=== PATIENT | female | born 1935 | race Caucasian/White ===

== ENCOUNTER 2020-09-07 13:34 | Inpatient (IN) | payer MEDICARE, OTHER ==
[~2020-09-07] VITALS: Ht 162.6 cm; Wt 79.8 kg
[2020-09-07] MEDS ORDERED: SODIUM CHLORIDE 0.9% 100 ML ONE ×3 (13:55→21:00)
[2020-09-07] MEDS ORDERED: IOVERSOL 350 MG/ML 150 ML VIAL ONE (13:55)
[2020-09-07] MEDS ORDERED: IOVERSOL 350 MG/ML 100 ML VIAL ONE (14:11)
[2020-09-07 14:24] LABS: BASOPHILS % (AUTO) 0.2 % (0.0-2.0); EOSINOPHILS % (AUTO) 0.1 % (1.0-6.0); HEMATOCRIT 48.5 % (36-46); HEMOGLOBIN 15.9 g/dL (12.0-16.0); LYMPHOCYTES # (AUTO) 0.9 K/uL (1.0-4.8); MEAN CORPUSCULAR HEMOGLOBIN 28.2 pg (26.0-34.0); MEAN CORPUSCULAR HGB CONC 32.8 G/dL (31.0-37.0); MEAN CORPUSCULAR VOLUME 86 fL (80-100); MONOCYTES # (AUTO) 0.5 K/uL (0.1-1.0); MONOCYTES % (AUTO) 3.8 % (2.0-9.0); NEUTROPHILS # (AUTO) 12.9 K/uL (1.8-7.7); PLATELET COUNT (AUTO) 275 K/uL (150-450); RED BLOOD CELL COUNT(AUTO) 5.65 MIL/uL (4.00-5.20); RED CELL DISTRIBUTION WIDTH 16.4 % (11.5-14.5)
[2020-09-07 14:25] LABS: NEUTROPHILS % (AUTO) 89.9 % (40.0-70.0)
[2020-09-07 14:29] LABS: CALCIUM, TOTAL 9.9 mg/dL (8.8-10.5); CREATININE 1.96 mg/dL (0.60-1.30); POTASSIUM 4.1 mmol/L (3.5-5.1)
[2020-09-07 14:34] LABS: INR 1.3 (0.9-1.1); PROTHROMBIN TIME 13.5 SEC (9.4-11.6)
[2020-09-07 14:54] LABS: ALBUMIN 3.2 g/dL (3.4-5.0); BILIRUBIN,TOTAL 1.6 mg/dL (0.1-1.0); TOTAL PROTEIN, SERUM 7.1 g/dL (6.4-8.2)
[2020-09-07 14:59] LABS: LACTIC ACID 4.1 mmol/L (0.4-2.0)
[2020-09-07] MEDS ORDERED: SODIUM CHLORIDE 0.9% 500 ML IV ONE (15:15)
[2020-09-07 15:31] LABS: AMPHET/METH SCREEN,URINE NEGATIVE (NEGATIVE); BARBITURATE SCREEN, URINE NEGATIVE (NEGATIVE); BENZODIAZEPINES SCREEN,URINE NEGATIVE (NEGATIVE); CANNABINOID SCREEN,URINE NEGATIVE (NEGATIVE); COCAINE SCREEN,URINE NEGATIVE (NEGATIVE); METHADONE SCREEN, URINE NEGATIVE (NEGATIVE); OPIATE SCREEN,URINE NEGATIVE (NEGATIVE)
[2020-09-07 15:35] LABS: PHENCYCLIDINE SCREEN,URINE NEGATIVE (NEGATIVE)
[2020-09-07] MEDS ORDERED: CefTRIAXone 1 GM/DEXTROSE 50 ML IV ONE (16:30)
[2020-09-07 16:40] LABS: COVID AG,FIA SOURCE NASOPHARYNGEAL
[2020-09-07] MEDS ORDERED: 0.9% SODIUM CHLORIDE 10 ML SYRINGE IVP PRN (17:30)
[2020-09-07] MEDS ORDERED: ACETAMINOPHEN 325 MG TABLET PO PRN ×2 (17:30→18:45)
[2020-09-07] MEDS ORDERED: MORPHINE SULFATE 2 MG/ML SYRINGE IVP PRN (18:45)
[2020-09-07] MEDS ORDERED: HEPARIN SODIUM,PORCINE 5,000 UNITS/ML VIAL IVP ONE (18:45)
[2020-09-07] MEDS ORDERED: IPRATROPIUM BROMIDE 0.5 MG/2.5 ML NEB SOLUTION NEB PRN (18:45)
[2020-09-07] MEDS ORDERED: ONDANSETRON HCL 4 MG/2 ML VIAL IVP PRN (18:45)
[2020-09-07] MEDS ORDERED: HEPARIN SODIUM,PORCINE 5,000 UNITS/ML VIAL IVP PRN ×3 (18:45→19:44)
[2020-09-07] MEDS ORDERED: BISACODYL 10 MG RECTAL RECTAL SUPPOSITORY PR PRN (18:45)
[2020-09-07] MEDS ORDERED: SODIUM CHLORIDE 0.45% 1,000 ML IV ONE (18:45)
[2020-09-07] MEDS ORDERED: HYDROCODONE/ACETAMINOPHEN 5-325 MG TABLET PO PRN (18:45)
[2020-09-07] MEDS ORDERED: ZOLPIDEM TARTRATE 5 MG TABLET PO PRN (18:45)
[2020-09-07] MEDS ORDERED: ALBUTEROL SULFATE 2.5 MG/0.5 ML NEB SOLUTION NEB PRN (18:45)
[2020-09-07] MEDS ORDERED: MAGNESIUM HYDROXIDE SUSPENSION 30 ML UDCUP PO PRN (18:45)
[2020-09-07 18:50] VITALS: BP 143/80
[2020-09-07 20:09] LABS: BASOPHILS % (AUTO) 0.2 % (0.0-2.0); EOSINOPHILS % (AUTO) 0.1 % (1.0-6.0); HEMATOCRIT 48.1 % (36-46); HEMOGLOBIN 15.4 g/dL (12.0-16.0); LYMPHOCYTES # (AUTO) 1.3 K/uL (1.0-4.8); LYMPHOCYTES % (AUTO) 8.9 % (22.0-44.0); MEAN CORPUSCULAR HEMOGLOBIN 27.9 pg (26.0-34.0); MEAN CORPUSCULAR HGB CONC 32.1 G/dL (31.0-37.0); MEAN CORPUSCULAR VOLUME 87 fL (80-100); MONOCYTES % (AUTO) 6.8 % (2.0-9.0); NEUTROPHILS # (AUTO) 11.9 K/uL (1.8-7.7); PLATELET COUNT (AUTO) 216 K/uL (150-450); RED BLOOD CELL COUNT(AUTO) 5.54 MIL/uL (4.00-5.20)
[2020-09-07 20:31] LABS: INR 1.3 (0.9-1.1); PROTHROMBIN TIME 13.3 SEC (9.4-11.6)
[2020-09-07 20:42] VITALS: BP 123/59
[2020-09-07] MEDS: DOCUSATE SODIUM 100 MG CAPSULE PO SCH (21:00)
[2020-09-07] MEDS: CefTRIAXone 1 GM/DEXTROSE 50 ML IV SCH (21:25)
[2020-09-07] MEDS: HEPARIN SODIUM 25000 UNITS/D5W 250 ML IV PRN (23:12)
[2020-09-08 00:20] VITALS: BP 129/62
[2020-09-08 04:15] VITALS: BP 121/60
[2020-09-08 07:46] LABS: APPEARANCE,URINE CLOUDY (CLEAR); GLUCOSE, URINE (UA) 100 mg/dL (NEGATIVE); KETONES,URINE TRACE mg/dL (NEGATIVE); LEUKOCYTE ESTERASE ,URINE NEGATIVE (NEGATIVE); NITRATE,URINE NEGATIVE (NEGATIVE); OCCULT BLOOD,URINE SMALL (NEGATIVE); PROTEIN,URINE POS 1+ (NEGATIVE)
[2020-09-08 07:47] LABS: BILIRUBIN,URINE PRELIM. POSITIVE (NEGATIVE)
[2020-09-08 08:17] LABS: BACTERIA,URINE None Seen /HPF (None Seen); SQUAMOUS EPITHELIAL CELL,UR Few /LPF (None Seen)
[2020-09-08] MEDS: DOCUSATE SODIUM 100 MG CAPSULE PO SCH ×2 (09:00→21:00)
[2020-09-08 11:42] VITALS: BP 152/77
[2020-09-08 11:48] LABS: EOSINOPHILS % (AUTO) 0.4 % (1.0-6.0); HEMATOCRIT 44.9 % (36-46); HEMOGLOBIN 14.7 g/dL (12.0-16.0); LYMPHOCYTES # (AUTO) 2.1 K/uL (1.0-4.8); LYMPHOCYTES % (AUTO) 17.4 % (22.0-44.0); MEAN CORPUSCULAR HEMOGLOBIN 28.1 pg (26.0-34.0); MEAN CORPUSCULAR HGB CONC 32.8 G/dL (31.0-37.0); MEAN CORPUSCULAR VOLUME 86 fL (80-100); MONOCYTES # (AUTO) 0.9 K/uL (0.1-1.0); MONOCYTES % (AUTO) 7.7 % (2.0-9.0); NEUTROPHILS # (AUTO) 8.8 K/uL (1.8-7.7); NEUTROPHILS % (AUTO) 73.5 % (40.0-70.0); PLATELET COUNT (AUTO) 228 K/uL (150-450); RED BLOOD CELL COUNT(AUTO) 5.25 MIL/uL (4.00-5.20); RED CELL DISTRIBUTION WIDTH 17.1 % (11.5-14.5)
[2020-09-08 11:56] LABS: CALCIUM, TOTAL 9.4 mg/dL (8.8-10.5); CREATININE 2.38 mg/dL (0.60-1.30)
[2020-09-08] MEDS: DEXTROSE 5%-WATER 1,000 ML IV SCH (14:00)
[2020-09-08 16:22] VITALS: BP 148/109
[2020-09-08] MEDS: CefTRIAXone 1 GM/DEXTROSE 50 ML IV SCH (17:59)
[2020-09-08 19:34] VITALS: BP 117/63
[2020-09-08 19:41] LABS: CALCIUM, TOTAL 9.8 mg/dL (8.8-10.5); CREATININE 2.45 mg/dL (0.60-1.30); POTASSIUM 4.1 mmol/L (3.5-5.1)
[2020-09-08] MEDS: HEPARIN SODIUM 25000 UNITS/D5W 250 ML IV PRN (21:42)
[2020-09-08 23:31] VITALS: BP 122/75
[2020-09-09] MEDS: DEXTROSE 5%-WATER 1,000 ML IV SCH ×2 (04:15→16:29)
[2020-09-09 04:19] VITALS: BP 156/67
[2020-09-09] MEDS: DOCUSATE SODIUM 100 MG CAPSULE PO SCH ×2 (09:00→21:00)
[2020-09-09 09:41] LABS: CALCIUM, TOTAL 8.6 mg/dL (8.8-10.5); CREATININE 1.66 mg/dL (0.60-1.30); POTASSIUM 3.3 mmol/L (3.5-5.1)
[2020-09-09 11:30] VITALS: BP 149/88
[2020-09-09 16:15] VITALS: BP 126/94
[2020-09-09 20:46] VITALS: BP 109/71
[2020-09-09] MEDS: CefTRIAXone 1 GM/DEXTROSE 50 ML IV SCH (21:00)
[2020-09-09 22:17] LABS: CALCIUM, TOTAL 8.5 mg/dL (8.8-10.5); CREATININE 1.38 mg/dL (0.60-1.30); POTASSIUM 3.4 mmol/L (3.5-5.1)
[2020-09-09 23:46] VITALS: BP 100/62
[2020-09-10 04:22] VITALS: BP 110/66
[2020-09-10] MEDS: DEXTROSE 5%-WATER 1,000 ML IV SCH ×2 (06:31→19:24)
[2020-09-10] MEDS: DOCUSATE SODIUM 100 MG CAPSULE PO SCH ×2 (08:05→21:00)
[2020-09-10 08:10] VITALS: BP 139/92
[2020-09-10 10:31] LABS: CALCIUM, TOTAL 8.5 mg/dL (8.8-10.5); CREATININE 1.06 mg/dL (0.60-1.30)
[2020-09-10 11:25] VITALS: BP 121/69
[2020-09-10] MEDS: PANTOPRAZOLE SODIUM 40 MG/VIAL IVP SCH (12:41)
[2020-09-10] MEDS: POTASSIUM CHL 10 MEQ/WATER 50 ML IV SCH ×4 (12:41→16:51)
[2020-09-10 15:45] VITALS: BP 106/61
[2020-09-10] MEDS: HEPARIN SODIUM 25000 UNITS/D5W 250 ML IV PRN (18:13)
[2020-09-10 19:15] LABS: CALCIUM, TOTAL 8.5 mg/dL (8.8-10.5); CREATININE 0.9 mg/dL (0.60-1.30); POTASSIUM 4.3 mmol/L (3.5-5.1)
[2020-09-10] MEDS: CefTRIAXone 1 GM/DEXTROSE 50 ML IV SCH (19:23)
[2020-09-10 20:01] VITALS: BP 104/57
[2020-09-10] MEDS: ASPIRIN 300 MG RECTAL SUPPOSITORY PR SCH (21:36)
[2020-09-10 23:33] VITALS: BP 108/60
[2020-09-11 05:06] VITALS: BP 121/50
[2020-09-11 07:34] VITALS: BP 130/67
[2020-09-11] MEDS: ASPIRIN 300 MG RECTAL SUPPOSITORY PR SCH (08:43)
[2020-09-11] MEDS: PANTOPRAZOLE SODIUM 40 MG/VIAL IVP SCH (08:52)
[2020-09-11] MEDS: DEXTROSE 5%-WATER 1,000 ML IV SCH ×2 (08:52→21:30)
[2020-09-11] MEDS: DOCUSATE SODIUM 100 MG CAPSULE PO SCH ×2 (08:53→21:17)
[2020-09-11 10:25] LABS: BASOPHILS % (AUTO) 0.6 % (0.0-2.0); EOSINOPHILS % (AUTO) 3.7 % (1.0-6.0); HEMATOCRIT 32.4 % (36-46); LYMPHOCYTES # (AUTO) 1.3 K/uL (1.0-4.8); LYMPHOCYTES % (AUTO) 15.5 % (22.0-44.0); MEAN CORPUSCULAR HEMOGLOBIN 28.9 pg (26.0-34.0); MEAN CORPUSCULAR HGB CONC 33.9 G/dL (31.0-37.0); MEAN CORPUSCULAR VOLUME 85 fL (80-100); MONOCYTES % (AUTO) 7.2 % (2.0-9.0); NEUTROPHILS # (AUTO) 5.9 K/uL (1.8-7.7); PLATELET COUNT (AUTO) 193 K/uL (150-450); RED BLOOD CELL COUNT(AUTO) 3.81 MIL/uL (4.00-5.20); RED CELL DISTRIBUTION WIDTH 16.3 % (11.5-14.5)
[2020-09-11 10:26] LABS: MONOCYTES # (AUTO) 0.6 K/uL (0.1-1.0)
[2020-09-11 10:39] LABS: CHOL/HDL RATIO 5.3 (3.9-5.7)
[2020-09-11 11:50] VITALS: BP 141/79
[2020-09-11 15:48] VITALS: BP 132/73
[2020-09-11] MEDS: CefTRIAXone 1 GM/DEXTROSE 50 ML IV SCH (18:10)
[2020-09-11 20:15] VITALS: BP 121/58
[2020-09-12] VITALS (7 sets, daily range): BP systolic 106–129; BP diastolic 60–79
[2020-09-12] MEDS: DOCUSATE SODIUM 100 MG CAPSULE PO SCH ×2 (09:00→21:00)
[2020-09-12] MEDS: ASPIRIN 300 MG RECTAL SUPPOSITORY PR SCH (09:00)
[2020-09-12] MEDS: PANTOPRAZOLE SODIUM 40 MG/VIAL IVP SCH (09:16)
[2020-09-12] MEDS: DEXTROSE 5%-WATER 1,000 ML IV SCH (09:17)
[2020-09-12 11:21] LABS: BASOPHILS % (AUTO) 0.5 % (0.0-2.0); EOSINOPHILS % (AUTO) 4.8 % (1.0-6.0); HEMATOCRIT 36.6 % (36-46); HEMOGLOBIN 12.1 g/dL (12.0-16.0); LYMPHOCYTES % (AUTO) 14.4 % (22.0-44.0); MEAN CORPUSCULAR HEMOGLOBIN 28.2 pg (26.0-34.0); MEAN CORPUSCULAR VOLUME 85 fL (80-100); MONOCYTES # (AUTO) 0.5 K/uL (0.1-1.0); MONOCYTES % (AUTO) 6.6 % (2.0-9.0); NEUTROPHILS # (AUTO) 5.3 K/uL (1.8-7.7); NEUTROPHILS % (AUTO) 73.7 % (40.0-70.0); PLATELET COUNT (AUTO) 264 K/uL (150-450); RED BLOOD CELL COUNT(AUTO) 4.29 MIL/uL (4.00-5.20); RED CELL DISTRIBUTION WIDTH 16.6 % (11.5-14.5)
[2020-09-12 11:35] LABS: INR 1.5 (0.9-1.1); PROTHROMBIN TIME 15.1 SEC (9.4-11.6)
[2020-09-12 11:36] LABS: ALANINE AMINOTRANSFERASE 24 U/L (12-78); ALBUMIN 2.3 g/dL (3.4-5.0); ALKALINE PHOSPHATASE 82 U/L (46-116); ANION GAP 8 mmol/L (8-16); ASPARTATE AMINOTRANSFERASE 26 U/L (15-37); BILIRUBIN,TOTAL 0.9 mg/dL (0.1-1.0); CALCIUM, TOTAL 8.8 mg/dL (8.8-10.5); CARBON DIOXIDE 23 mmol/L (22-29); CHLORIDE 104 mmol/L (98-107); CREATININE 0.79 mg/dL (0.60-1.30); GLUCOSE,RANDOM 100 mg/dL (70-110); POTASSIUM 3.4 mmol/L (3.5-5.1); SODIUM SERUM 135 mmol/L (136-145); TOTAL PROTEIN, SERUM 6.2 g/dL (6.4-8.2); UREA NITROGEN, BLOOD 8 mg/dL (7-18)
[2020-09-12 11:44] LABS: GLOMERULAR FILTR. RATE CALC > 60 mL/min (>60)
[2020-09-12] MEDS ORDERED: SODIUM CHLORIDE 0.9% 1,000 ML ONE (13:10)
[2020-09-12] MEDS ORDERED: MIDAZOLAM HCL 2 MG/2 ML VIAL ONE (13:11)
[2020-09-12] MEDS ORDERED: FentaNYL CITRATE-PF 100 MCG/2 ML VIAL ONE (13:12)
[2020-09-12] MEDS ORDERED: CeFAZolin 1 GM/DEXTROSE 50 ML IV ONE (14:00)
[2020-09-12] MEDS: CefTRIAXone 1 GM/DEXTROSE 50 ML IV SCH (17:46)
[2020-09-12] MEDS: HEPARIN SODIUM 25000 UNITS/D5W 250 ML IV PRN (23:12)
[2020-09-13] VITALS: BP 116/74
[2020-09-13] MEDS: DEXTROSE 5%-WATER 1,000 ML IV SCH (00:10)
[2020-09-13 03:44] VITALS: BP 109/63
[2020-09-13 05:02] LABS: COVID AG,FIA SOURCE NASOPHARYNGEAL
[2020-09-13 07:21] VITALS: BP 151/98
[2020-09-13] MEDS: DOCUSATE SODIUM 100 MG CAPSULE PO SCH (07:49)
[2020-09-13] MEDS: ASPIRIN 300 MG RECTAL SUPPOSITORY PR SCH (08:39)
[2020-09-13] MEDS ORDERED: MULTIVITAMINS, THERAPEUTIC 15 ML UDCUP PEG SCH (09:00)
[2020-09-13] MEDS ORDERED: HYDROGEN PEROXIDE 473 ML SOLUTION TP SCH (09:00)
[2020-09-13] MEDS ORDERED: POVIDONE-IODINE 10% 120 ML SOLUTION TP SCH (09:00)
[2020-09-13] MEDS ORDERED: MULTIVITAMINS WITH MINERALS, THERAPEUTIC 15 ML UDCUP PEG SCH (09:00)
[2020-09-13 09:29] LABS: BASOPHILS % (AUTO) 0.9 % (0.0-2.0); EOSINOPHILS % (AUTO) 2.8 % (1.0-6.0); HEMATOCRIT 33.8 % (36-46); HEMOGLOBIN 11.6 g/dL (12.0-16.0); LYMPHOCYTES # (AUTO) 1.2 K/uL (1.0-4.8); LYMPHOCYTES % (AUTO) 13.4 % (22.0-44.0); MEAN CORPUSCULAR HEMOGLOBIN 28.9 pg (26.0-34.0); MEAN CORPUSCULAR HGB CONC 34.5 G/dL (31.0-37.0); MEAN CORPUSCULAR VOLUME 84 fL (80-100); MONOCYTES # (AUTO) 0.8 K/uL (0.1-1.0); MONOCYTES % (AUTO) 8.7 % (2.0-9.0); NEUTROPHILS # (AUTO) 6.5 K/uL (1.8-7.7); NEUTROPHILS % (AUTO) 74.2 % (40.0-70.0); PLATELET COUNT (AUTO) 296 K/uL (150-450); RED BLOOD CELL COUNT(AUTO) 4.02 MIL/uL (4.00-5.20); RED CELL DISTRIBUTION WIDTH 16.6 % (11.5-14.5)
[2020-09-13 09:46] LABS: ALANINE AMINOTRANSFERASE 21 U/L (12-78); ALBUMIN 2.1 g/dL (3.4-5.0); ALKALINE PHOSPHATASE 82 U/L (46-116); ANION GAP 9 mmol/L (8-16); ASPARTATE AMINOTRANSFERASE 20 U/L (15-37); BILIRUBIN,TOTAL 0.6 mg/dL (0.1-1.0); CALCIUM, TOTAL 8.1 mg/dL (8.8-10.5); CARBON DIOXIDE 25 mmol/L (22-29); CHLORIDE 106 mmol/L (98-107); CREATININE 0.79 mg/dL (0.60-1.30); GLUCOSE,RANDOM 124 mg/dL (70-110); POTASSIUM 3.4 mmol/L (3.5-5.1); SODIUM SERUM 140 mmol/L (136-145); TOTAL PROTEIN, SERUM 5.4 g/dL (6.4-8.2); UREA NITROGEN, BLOOD 7 mg/dL (7-18)
[2020-09-13 09:51] LABS: GLOMERULAR FILTR. RATE CALC > 60 mL/min (>60)
[2020-09-13] MEDS: PANTOPRAZOLE SODIUM 40 MG/VIAL IVP SCH (10:06)
[2020-09-13 11:31] VITALS: BP 113/83
[2020-09-13] MEDS ORDERED: MULT9LIQ6 PEG (13:06)
[2020-09-13] MEDS ORDERED: ACET-2865 PO (13:07)
[2020-09-13] MEDS ORDERED: AUD NEB (13:08)
[2020-09-13] MEDS ORDERED: [UNRECOGNIZED DRUG - CODE] PO (13:10)
[2020-09-13] MEDS ORDERED: IPRNEB IH (13:11)
[2020-09-13] MEDS ORDERED: ASPI-728 PEG (13:12)
[2020-09-13] MEDS ORDERED: CEFU250T87 PO (13:16)
[2020-09-13] MEDS ORDERED: APIX5TAB PO (13:16)
[2020-09-13] MEDS ORDERED: PANT-31 PO (13:17)
[2020-09-13 15:42] VITALS: BP 113/83
[2020-09-13] MEDS ORDERED: APIXABAN 5 MG TABLET PO SCH (21:00)
== END 2020-09-13 17:10 | DRG 64 ==
LOC: EMS 13:36 → 5S 17:50
PROVIDERS: ADMIT Hospitalist; ATTEND Hospitalist
PROC: 0DH63UZ Insertion of Feeding Device into Stomach, Percutaneous Approach (ICD-10-PCS; principal; 2020-09-12 15:00)
DX: I63.9 Cerebral infarction, unspecified (principal); I26.99 Other pulmonary embolism without acute cor pulmonale; E43 Unspecified severe protein-calorie malnutrition; E87.0 Hyperosmolality and hypernatremia; N17.9 Acute kidney failure, unspecified; E87.2 Acidosis; E86.0 Dehydration; D72.829 Elevated white blood cell count, unspecified; Z66 Do not resuscitate; Z68.30 Body mass index [BMI] 30.0-30.9, adult; F02.80 Dementia in other diseases classified elsewhere, unspecified severity, without behavioral disturbance, psychotic disturbance, mood disturbance, and anxiety; G30.9 Alzheimer's disease, unspecified; E87.6 Hypokalemia; R13.10 Dysphagia, unspecified; Z20.828 Contact with and (suspected) exposure to other viral communicable diseases
CPT/HCPCS: 70496; 82271; 83605; 85730; 86850; 86900; 86901; 87426; 92526; 92610; 93005; 97162; 97167; 97535; 99291; C9113; J0690; J0696; J1644; J2250; J3010; J3480; J7030; J7040; J7050; J7060; 36415-L1; 36415-TC; 70450; 70450-TC; 71045-TC; 80061-TC

== ENCOUNTER 2020-10-19 16:53 | Inpatient (IN) | payer MEDICARE, OTHER ==
[~2020-10-19] VITALS: Ht 170.2 cm; Wt 81.8 kg
[~2020-10-19 16:53] MED LIST: ACET-2865 PO; APIX5TAB PO; ASPI-728 PEG; AUD NEB; BISA-151 PO; CEFU250T87 GT; DOCU-275 PO; IPRNEB IH; MULT9LIQ6 PEG; PANT-31 GT
[2020-10-19] MEDS ORDERED: DOCU-275 PO (17:11)
[2020-10-19] MEDS ORDERED: LANS30CA56 PO (17:11)
[2020-10-19] MEDS ORDERED: ACETAMINOPHEN 1000 MG/ISO-OSM 100 ML IV ONE (17:45)
[2020-10-19] MEDS ORDERED: SODIUM CHLORIDE 0.9% 1,000 ML IV ONE (17:45)
[2020-10-19] MEDS ORDERED: AZITHROMYCIN 500 MG/NS 250 ML IV ONE (17:45)
[2020-10-19] MEDS ORDERED: CefTRIAXone 1 GM/DEXTROSE 50 ML IV ONE (17:45)
[2020-10-19 17:51] LABS: GLUCOSE,POINT OF CARE 115 MG/DL (70-110)
[2020-10-19 17:58] LABS: COVID AG,FIA SOURCE NASOPHARYNGEAL
[2020-10-19 18:50] LABS: BASOPHILS % (AUTO) 0.1 % (0.0-2.0); EOSINOPHILS % (AUTO) 0 % (1.0-6.0); HEMATOCRIT 29.9 % (36-46); LYMPHOCYTES # (AUTO) 0.7 K/uL (1.0-4.8); LYMPHOCYTES % (AUTO) 8.7 % (22.0-44.0); MEAN CORPUSCULAR HEMOGLOBIN 29.2 pg (26.0-34.0); MEAN CORPUSCULAR HGB CONC 33.3 G/dL (31.0-37.0); MEAN CORPUSCULAR VOLUME 88 fL (80-100); MONOCYTES # (AUTO) 0.6 K/uL (0.1-1.0); MONOCYTES % (AUTO) 7.6 % (2.0-9.0); NEUTROPHILS # (AUTO) 6.7 K/uL (1.8-7.7); NEUTROPHILS % (AUTO) 83.6 % (40.0-70.0); PLATELET COUNT (AUTO) 273 K/uL (150-450); RED BLOOD CELL COUNT(AUTO) 3.42 MIL/uL (4.00-5.20); RED CELL DISTRIBUTION WIDTH 16.1 % (11.5-14.5)
[2020-10-19 19:00] LABS: INFLUENZA TYPE A NEGATIVE FOR TYPE A (NEGATIVE); INFLUENZA TYPE B NEGATIVE FOR TYPE B (NEGATIVE)
[2020-10-19 19:05] LABS: APPEARANCE,URINE CLOUDY (CLEAR); BILIRUBIN,URINE NEGATIVE (NEGATIVE); GLUCOSE, URINE (UA) NEGATIVE (NEGATIVE); KETONES,URINE NEGATIVE (NEGATIVE); LEUKOCYTE ESTERASE ,URINE LARGE (NEGATIVE); NITRATE,URINE POSITIVE (NEGATIVE); OCCULT BLOOD,URINE LARGE (NEGATIVE); PH,URINE 6.5 (5.0-8.0); PROTEIN,URINE POS 1+ (NEGATIVE); UROBILINOGEN,URINE 0.2 mg/dL (<=1.0)
[2020-10-19 19:12] LABS: BACTERIA,URINE Many /HPF (None Seen); RBC,URINE 0-2 /HPF (0-2); WBC,URINE >100 /HPF (0-5)
[2020-10-19 19:13] LABS: CREATININE 1.44 mg/dL (0.60-1.30); POTASSIUM 3.3 mmol/L (3.5-5.1)
[2020-10-19 19:13] LABS: SQUAMOUS EPITHELIAL CELL,UR Moderate /LPF (None Seen)
[2020-10-19] MEDS ORDERED: ACETAMINOPHEN 325 MG TABLET PO PRN (19:30)
[2020-10-19] MEDS ORDERED: 0.9% SODIUM CHLORIDE 10 ML SYRINGE IVP PRN (19:30)
[2020-10-19] MEDS ORDERED: ONDANSETRON HCL 4 MG/2 ML VIAL IVP PRN ×2 (19:30→20:00)
[2020-10-19 19:36] LABS: BILIRUBIN,TOTAL 0.3 mg/dL (0.1-1.0); MAGNESIUM 1.9 mg/dL (1.80-2.40); TOTAL PROTEIN, SERUM 6.2 g/dL (6.4-8.2)
[2020-10-19] MEDS ORDERED: BISACODYL 10 MG RECTAL RECTAL SUPPOSITORY PR PRN (20:00)
[2020-10-19] MEDS ORDERED: MORPHINE SULFATE 2 MG/ML SYRINGE IVP PRN (20:00)
[2020-10-19] MEDS ORDERED: MAGNESIUM HYDROXIDE SUSPENSION 30 ML UDCUP PO PRN (20:00)
[2020-10-19] MEDS ORDERED: *CLINICAL-LEVOFLOXACIN IVPB DOSING CLINICAL ONE (20:00)
[2020-10-19] MEDS ORDERED: SODIUM CHLORIDE 0.45% 1,000 ML IV ONE (20:00)
[2020-10-19] MEDS: ASPIRIN 81 MG CHEWABLE TABLET PEG SCH (23:28)
[2020-10-19] MEDS: LEVOFLOXACIN 750 MG/D5% WATER 150 ML IV SCH (23:28)
[2020-10-19] MEDS: DOCUSATE SODIUM 100 MG CAPSULE PO SCH (23:28)
[2020-10-19] MEDS: APIXABAN 2.5 MG TABLET PO SCH (23:28)
[2020-10-19] MEDS: ACETAMINOPHEN 325 MG TABLET PO PRN (23:29)
[2020-10-19 23:48] VITALS: BP 105/61
[2020-10-20] MEDS ORDERED: HEPARIN SODIUM,PORCINE 5,000 UNITS/ML VIAL SQ SCH
[2020-10-20 04:42] VITALS: BP 123/16
[2020-10-20 06:26] LABS: BASOPHILS % (AUTO) 0.3 % (0.0-2.0); EOSINOPHILS % (AUTO) 0.1 % (1.0-6.0); HEMATOCRIT 29.6 % (36-46); HEMOGLOBIN 9.9 g/dL (12.0-16.0); LYMPHOCYTES # (AUTO) 1.1 K/uL (1.0-4.8); LYMPHOCYTES % (AUTO) 14.1 % (22.0-44.0); MEAN CORPUSCULAR HEMOGLOBIN 29.2 pg (26.0-34.0); MEAN CORPUSCULAR HGB CONC 33.4 G/dL (31.0-37.0); MEAN CORPUSCULAR VOLUME 87 fL (80-100); MONOCYTES # (AUTO) 0.6 K/uL (0.1-1.0); MONOCYTES % (AUTO) 7.6 % (2.0-9.0); NEUTROPHILS % (AUTO) 77.9 % (40.0-70.0); PLATELET COUNT (AUTO) 244 K/uL (150-450); RED BLOOD CELL COUNT(AUTO) 3.39 MIL/uL (4.00-5.20); RED CELL DISTRIBUTION WIDTH 16.5 % (11.5-14.5)
[2020-10-20 06:36] LABS: CALCIUM, TOTAL 7.3 mg/dL (8.8-10.5); CREATININE 1.22 mg/dL (0.60-1.30); POTASSIUM 3.3 mmol/L (3.5-5.1)
[2020-10-20 07:31] VITALS: BP 98/63
[2020-10-20] MEDS: DOCUSATE SODIUM 100 MG CAPSULE PO SCH (09:00)
[2020-10-20] MEDS ORDERED: PANTOPRAZOLE SODIUM 40 MG DR TABLET PO SCH (09:00)
[2020-10-20] MEDS: ASPIRIN 81 MG CHEWABLE TABLET PEG SCH ×2 (09:23→20:28)
[2020-10-20] MEDS: APIXABAN 2.5 MG TABLET PO SCH ×2 (09:23→20:28)
[2020-10-20] MEDS ORDERED: DOCUSATE SODIUM 100 MG/10 ML LIQUID UDCUP GT PRN (10:15)
[2020-10-20] MEDS ORDERED: IPRATROPIUM BROMIDE HFA 17 MCG/PUFF 12.9 GM INHALER IH PRN (11:15)
[2020-10-20] MEDS ORDERED: ALBUTEROL SULFATE HFA 90 MCG/PUFF 8 GM INHALER IH PRN (11:15)
[2020-10-20] MEDS ORDERED: DEXTROSE 5%-WATER 1,000 ML IV ONE (11:15)
[2020-10-20 15:12] VITALS: BP 122/61
[2020-10-20] MEDS: HYDROCODONE/ACETAMINOPHEN 5-325 MG TABLET PO PRN (20:28)
[2020-10-20] MEDS: ZOLPIDEM TARTRATE 5 MG TABLET PO PRN (20:28)
[2020-10-20 20:35] VITALS: BP 117/68
[2020-10-21 00:30] VITALS: BP 124/71
[2020-10-21 05:00] VITALS: BP 104/62
[2020-10-21] MEDS: PANTOPRAZOLE SODIUM 40 MG/VIAL IVP SCH (07:59)
[2020-10-21] MEDS: APIXABAN 2.5 MG TABLET PO SCH ×2 (07:59→20:26)
[2020-10-21] MEDS: ASPIRIN 81 MG CHEWABLE TABLET PEG SCH ×2 (08:00→20:26)
[2020-10-21 08:26] VITALS: BP 124/97
[2020-10-21 08:57] LABS: GLUCOMETER DEV NAME(LOC) 6S.1; GLUCOSE,POINT OF CARE 97 MG/DL (70-110)
[2020-10-21 11:27] LABS: EOSINOPHILS % (AUTO) 0 % (1.0-6.0); HEMATOCRIT 30.1 % (36-46); HEMOGLOBIN 9.6 g/dL (12.0-16.0); LYMPHOCYTES # (AUTO) 0.8 K/uL (1.0-4.8); LYMPHOCYTES % (AUTO) 9.4 % (22.0-44.0); MEAN CORPUSCULAR VOLUME 88 fL (80-100); MONOCYTES # (AUTO) 0.4 K/uL (0.1-1.0); MONOCYTES % (AUTO) 4.5 % (2.0-9.0); NEUTROPHILS # (AUTO) 7.2 K/uL (1.8-7.7); PLATELET COUNT (AUTO) 237 K/uL (150-450); RED BLOOD CELL COUNT(AUTO) 3.44 MIL/uL (4.00-5.20); RED CELL DISTRIBUTION WIDTH 16.8 % (11.5-14.5)
[2020-10-21 11:31] LABS: NEUTROPHILS % (AUTO) 86.1 % (40.0-70.0)
[2020-10-21 12:17] LABS: CALCIUM, TOTAL 7.9 mg/dL (8.8-10.5); CREATININE 1.17 mg/dL (0.60-1.30); POTASSIUM 3.3 mmol/L (3.5-5.1)
[2020-10-21] MEDS: HYDROCODONE/ACETAMINOPHEN 5-325 MG TABLET PO PRN (12:21)
[2020-10-21 12:28] LABS: PHOSPHORUS 2.5 mg/dL (2.5-4.9)
[2020-10-21 16:35] VITALS: BP 134/73
[2020-10-21 19:46] VITALS: BP 110/59
[2020-10-21] MEDS: LEVOFLOXACIN 750 MG/D5% WATER 150 ML IV SCH (20:28)
[2020-10-22] MEDS: ZOLPIDEM TARTRATE 5 MG TABLET PO PRN (00:27)
[2020-10-22 00:50] VITALS: BP 130/87
[2020-10-22 04:37] VITALS: BP 128/71
[2020-10-22 07:43] LABS: EOSINOPHILS % (AUTO) 0 % (1.0-6.0); HEMATOCRIT 28.8 % (36-46); HEMOGLOBIN 9.5 g/dL (12.0-16.0); LYMPHOCYTES # (AUTO) 0.8 K/uL (1.0-4.8); LYMPHOCYTES % (AUTO) 12.5 % (22.0-44.0); MEAN CORPUSCULAR HEMOGLOBIN 28.5 pg (26.0-34.0); MEAN CORPUSCULAR VOLUME 86 fL (80-100); MONOCYTES # (AUTO) 0.3 K/uL (0.1-1.0); MONOCYTES % (AUTO) 4.8 % (2.0-9.0); NEUTROPHILS # (AUTO) 5.4 K/uL (1.8-7.7); NEUTROPHILS % (AUTO) 82.7 % (40.0-70.0); PLATELET COUNT (AUTO) 223 K/uL (150-450); RED BLOOD CELL COUNT(AUTO) 3.33 MIL/uL (4.00-5.20); RED CELL DISTRIBUTION WIDTH 16.4 % (11.5-14.5)
[2020-10-22 07:59] LABS: CALCIUM, TOTAL 8.2 mg/dL (8.8-10.5); CREATININE 0.91 mg/dL (0.60-1.30)
[2020-10-22 08:01] LABS: POTASSIUM 2.8 mmol/L (3.5-5.1)
[2020-10-22 08:25] VITALS: BP 121/83
[2020-10-22] MEDS ORDERED: POTASSIUM CHLORIDE 20 MEQ ER TABLET PO PRN (09:45)
[2020-10-22] MEDS: PANTOPRAZOLE SODIUM 40 MG/VIAL IVP SCH (10:10)
[2020-10-22] MEDS: POTASSIUM CHL 10 MEQ/WATER 50 ML IV PRN ×4 (10:11→17:26)
[2020-10-22] MEDS: ASPIRIN 81 MG CHEWABLE TABLET PEG SCH ×2 (10:11→19:49)
[2020-10-22] MEDS: APIXABAN 2.5 MG TABLET PO SCH ×2 (10:11→19:49)
[2020-10-22 16:37] VITALS: BP 147/89
[2020-10-22] MEDS: ACETAMINOPHEN 325 MG TABLET PO PRN (19:49)
[2020-10-22] MEDS ORDERED: SODIUM CHLORIDE 0.9% 500 ML IV ONE (19:51)
[2020-10-22 20:19] VITALS: BP 133/78
[2020-10-23] VITALS: BP 161/70
[2020-10-23 05:41] VITALS: BP 136/66
[2020-10-23] MEDS: PANTOPRAZOLE SODIUM 40 MG/VIAL IVP SCH (08:05)
[2020-10-23] MEDS: APIXABAN 2.5 MG TABLET PO SCH ×2 (08:06→20:38)
[2020-10-23] MEDS: ASPIRIN 81 MG CHEWABLE TABLET PEG SCH ×2 (08:06→20:39)
[2020-10-23] MEDS: DEXAMETHASONE SOD PHOS 4 MG/ML VIAL IVP SCH (08:06)
[2020-10-23 08:54] VITALS: BP 169/79
[2020-10-23 15:55] VITALS: BP 140/71
[2020-10-23] MEDS: MORPHINE SULFATE 2 MG/ML SYRINGE IVP PRN ×2 (17:23→20:39)
[2020-10-23 20:08] VITALS: BP 99/75
[2020-10-23] MEDS: LEVOFLOXACIN 750 MG/D5% WATER 150 ML IV SCH (22:15)
[2020-10-23] MEDS: HYDROCODONE/ACETAMINOPHEN 5-325 MG TABLET PO PRN (23:24)
[2020-10-24] MEDS: MORPHINE SULFATE 2 MG/ML SYRINGE IVP PRN (03:02)
[2020-10-24 05:26] VITALS: BP 111/71
[2020-10-24] MEDS ORDERED: MORPHINE SULFATE 2 MG/ML SYRINGE IVP PRN (06:00)
[2020-10-24] MEDS: ASPIRIN 81 MG CHEWABLE TABLET PEG SCH ×2 (08:05→20:43)
[2020-10-24] MEDS: APIXABAN 2.5 MG TABLET PO SCH ×2 (08:05→20:43)
[2020-10-24] MEDS: DEXAMETHASONE SOD PHOS 4 MG/ML VIAL IVP SCH (08:06)
[2020-10-24] MEDS: PANTOPRAZOLE SODIUM 40 MG/VIAL IVP SCH (08:06)
[2020-10-24 08:34] VITALS: BP 132/79
[2020-10-24] MEDS ORDERED: DEXTROSE 5%-0.45% SODIUM CHL 1,000 ML IV PRN (12:45)
[2020-10-24] MEDS ORDERED: MORPHINE SULFATE 100 MG/NS/PF 100 ML IV PRN (12:45)
[2020-10-24 15:44] VITALS: BP 69/51
[2020-10-24] MEDS: ACETAMINOPHEN 325 MG TABLET PO PRN (17:20)
[2020-10-24] MEDS: HYDROCODONE/ACETAMINOPHEN 5-325 MG TABLET PO PRN (20:43)
[2020-10-24 20:45] VITALS: BP 80/47
[2020-10-25 00:50] VITALS: BP 95/52
[2020-10-25] MEDS: HYDROCODONE/ACETAMINOPHEN 5-325 MG TABLET PO PRN (03:22)
[2020-10-25 04:56] VITALS: BP 89/49
[2020-10-25 09:25] VITALS: BP 92/61
[2020-10-25 16:33] VITALS: BP 99/66
[2020-10-25 20:09] VITALS: BP 120/59
[2020-10-25] MEDS ORDERED: MORPHINE SULFATE 100 MG/NS/PF 100 ML IV PRN (20:15)
== END 2020-10-25 23:24 | disposition expired | DRG 177 ==
LOC: EMS 16:53 → 6N 19:23
PROVIDERS: ADMIT Internal Medicine; ATTEND Internal Medicine
PROC: 5A09357 Assistance with Respiratory Ventilation, Less than 24 Consecutive Hours, Continuous Positive Airway Pressure (ICD-10-PCS; principal; 2020-10-20)
PROC: 5A09357 Assistance with Respiratory Ventilation, Less than 24 Consecutive Hours, Continuous Positive Airway Pressure (ICD-10-PCS; 2020-10-21)
PROC: 5A09357 Assistance with Respiratory Ventilation, Less than 24 Consecutive Hours, Continuous Positive Airway Pressure (ICD-10-PCS; 2020-10-22)
DX: U07.1 COVID-19 (principal); G93.41 Metabolic encephalopathy; J12.89 Other viral pneumonia; R65.11 Systemic inflammatory response syndrome (SIRS) of non-infectious origin with acute organ dysfunction; N17.9 Acute kidney failure, unspecified; N39.0 Urinary tract infection, site not specified; E87.1 Hypo-osmolality and hyponatremia; J44.1 Chronic obstructive pulmonary disease with (acute) exacerbation; E87.0 Hyperosmolality and hypernatremia; J44.0 Chronic obstructive pulmonary disease with (acute) lower respiratory infection; E87.6 Hypokalemia; D64.9 Anemia, unspecified; F32.9 Major depressive disorder, single episode, unspecified; Z88.8 Allergy status to other drugs, medicaments and biological substances; Z66 Do not resuscitate; Z86.711 Personal history of pulmonary embolism; Z86.73 Personal history of transient ischemic attack (TIA), and cerebral infarction without residual deficits; F03.90 Unspecified dementia, unspecified severity, without behavioral disturbance, psychotic disturbance, mood disturbance, and anxiety
CPT/HCPCS: 51702; 70450; 71250; 72192; 74150; 83605; 83735; 84100; 84132; 87040; 87081; 87086; 87426; 87804; 93005; 94660; 94799; 99291; C9113; J0131; J0456; J0696; J1100; J1956; J2270; J3480; J7030; J7040; J7060; 36415-L1; 36415-TC; 71045-TC; U0003